=== PATIENT | female | born 1955 | race Caucasian/White ===

== ENCOUNTER 2024-02-12 13:30 | Outpatient (RCR) | payer MEDICARE, SELFPAY ==
--- NOTE | 2024-01-29 15:21 | HP.OTEVAL ---
Patient's Visit Information Visit Information Visit Information: EB ECHEVARRIA is a 68 year old F, referred to Occupational Therapy by Dr. Myra Fernandez MD, with a diagnosis of Rheumatoid Arthritis M06.9. Date of Evaluation: 01/28/24 Occupational Therapist: Eliza Johnston Subjective Subjective: This 68 year old female aR thumb carpometacarpal arthroplasty suspension plasty and interposition; thumb adductor release, de quervains synovectomy; index finger MF metacarpal silicone arthroplasty; dupuytrens fasciectomy palm complete 01/09/24 now 2 weeks and 5 days. Pt recieved thumb spica orthosis a week ago with extension piece on LF and MF and a difference orthosis for nighttime made by [facility] pt stitches also removed at this time. Pt has pin to CMC. pt to see Dr fernandez for check up. Pt is R hand dominant and is very active taking care of garden at home. per pt she is able to move from PIP and up. Pain R hand: Current Pain Intensity: 0 Objective Objective/Observation: pt arrives in modified thumb spica orthosis to support at MCP joint of D2 and 3 as well as cmc. pt with pin at cmc of R hand orthosis bumped out to accomodate. pt stitch sites approximated stitches to dorsal D2 and 3 location below MCP, cmc region as well as palm. pt with black and blue running from palm into D 2 and 3 on chapman side. Pt states i over did it gardening yesterday. py reports feeling sore after overusing her hand the other day. ROM Wrist: R 40/34 L 60/50 MP: R -20/30 L 0/10 IP: R +10/25 L +10/50 PIP: D2 R 0/30 L D2 0/80 R D3 0/65 L 0/80 DIP: D2 R 0/25 L D2 0/70 R D3 0/10 L 0/65 ROM Comments: R UD 15 RD [address] 18 Strength Marketing Team Lead: L 25 Lateral Pinch: L 5 Tripod Pinch: L 3 Strength Comments: R to be tested at later date Edema Other: R MCP 20 cm L MCP 18cm Sensation Sensation Comments: denies numbness or tingling Quick DASH-Disab of Arm,Shoulder& Hand Quick DASH Score: 65.0000 Goals Goal:: pt will demonstrate improved RUE analytic programmer strength equal to or greater than non affected UE (25#) in order to perform self care/ IADL tasks pt will improve R lateral pinch strength equal to or greater than non affected UE (5#) in order to perform self care/IADL tasks pt will improve R tripod pinch strength equal to or greater than non affected UE (3#) in order to perform self care/IADL tasks Goal:: pt will improve R wrist ext/flex equasl to non affected UE (60/50) in order to perform gardening tasks pt will improve R hand D2 and D3 PIP flexion equal to of greater than non affected UE ( D2 0/80 D3 0/80) in order to perform gardening tasks pt will improve R hand D2 and D3 DIP flexion equal to or greater than non affected UE ( D2 0/70 D3 0/65) in order to perform gardening tasks pt will demonstrate the ability to come to full composite fist with RUE by end of POC pt will improve D1 IP flexion equal to ore greater than non affected UE (+10/50) in order to perform gardening tasks Goal:: pt will verbalize/demonstrate 100% accuracy in R hand D1-3 joint protection and proper joint alignment in order to promote proper healing and joint integrity Goal:: pt will improve quick dash score by decreasing by 10-15 points (65.0) in order to maximize functional use of UE during day to day tasks Goal:100% adherence to protocol: Yes Goal:Daily scar massage when approriate: Yes Goal:ROM equal to unaffected hand: Yes Rehabilitation General Assessment: This 68 year old female presents with completion of R CMC arthroplasty suspension plasty and interposition; thumb adductor release; de quervains synovectomy; index finger and middle finger metacarpal silicone arthroplasty; limited dupuytrens fasciectomy complete 01/09/24 by Myra Fernandez. This female presents with limitations in ROM, sitffness, decreased knowledge in joint protection and proepr alignment indicating need for OT services 1-2x a week for 4-6 week duration. Rehabilitation Potential: Good Anticipated Interventions Anticipated Interventions: A/AAROM/PROM, Strengthening, Scar Care, Triggerpoint Release, Wound Care, Modalities, Joint Protection/Energy Conservation, ADL Training, Education re assistive Equipment, Education re Diagnosis and Home Program Visit Plan Frequency: 1-2x /Week Duration: 4-6 Weeks General Plan: blocking exercise scar massage ed on joint protection and proper alignment bracing adjustments as needed AROM/AAROM/PROM stregnthening TEXT: Thank you for the opportunity to evaluate your patient. For Medicare and Medicare HMO plans, please review the plan of care and approve it. It will need to be FAXED BACK to us at [phone] for Medicare purposes. Please let me know if there are questions or concerns regarding this plan of care. Physician Signature: Date:
--- NOTE | 2024-05-14 12:46 | HP.OT.NRP ---
Patient Information Patient Information: EB ECHEVARRIA was seen in my office for initial evaluation on 01/28/24. The following Plan of Care was established for this patient: POC Established Initial Frequency: 1-2x /Week Initial Duration: 4-6 Weeks Plan: brace modifications AROM/AAROM/PROM scar mobilization Anticipated Interventions Anticipated Interventions: A/AAROM/PROM, Strengthening, Scar Care, Triggerpoint Release, Wound Care, Modalities, Joint Protection/Energy Conservation, ADL Training, Education re assistive Equipment, Education re Diagnosis and Home Program Last Seen Last Seen: This patient was last seen in our office 02/12/24. Pertinent comments regarding their Occupational therapy will appear below: This 68 year old female seen for dx of R thumb cmc arthroplasty as well as MP head replacement. pt seen for eval and one additional visit where orthosis was cut down for increased ROM. progress made in POC however discharge due to lapse in time since services. At this point I will be discontinuing this patient from occupational therapy. I would be happy to see this patient again in the future if found appropriate by the physician. Thank you! Eliza Johnston
== END 2024-02-12 19:00 | disposition home or self-care (01) ==
LOC: OT 13:30
PROVIDERS: PCP Family Medicine; Referring Provider Orthopaedic Surgery Hand Surgery; Visit Provider Orthopaedic Surgery Hand Surgery
DX: M06.9 Rheumatoid arthritis, unspecified (principal)
CPT/HCPCS: 97166; 97530